=== PATIENT | female | born 1955 | race Caucasian/White ===

== ENCOUNTER → 2019-06-18 | Outpatient (CLI) | payer BC, OTHER ==
--- NOTE | 2019-06-19 11:28 | REP ---
MRI LUMBAR SPINE WITHOUT CONTRAST: 06/18/2019. Comparison: 09/27/2013. Clinical history: Back pain, spondylosis. Evaluate for stenosis. Technique: T1, T2 and STIR sagittal with axial T1 and T2 sequences. Findings: A 12 L1 through L4-5 disc levels show loss of disc signal. There is mild preservation of signal at L5-S1 but all this is unchanged. Disc heights are unchanged and maintained. Vertebral bodies show Schmorl's nodes at multiple endplates but no compression deformity of destructive lesion. Conus terminates at L1-2. T12-L1, L1-2 levels show no disc bulge or herniation and no spinal or foraminal stenosis. At L2-L3 there is a broad-based disc bulge thinning ventral subarachnoid space, ligamentum and facet hypertrophic changes are present, but the cross-sectional area of the canal appears adequate. The foramina are adequate without L2 nerve root compression. At L3-L4 there is a broad-based disc bulge with compression of the thecal sac. There is a left lateral disc protrusion but this does not compress the L3 nerve root in the foramen on that left side the right foramen is also adequate without nerve root compression. At L4-L5 there is also a broad-based disc bulge with the bulge less prominent in the central canal but extending with protrusion and extrusion into the left neural foramen and increased fashion. It abuts and displaces the left L5 nerve root in the canal and the L4 nerve root in the foramen does not show compression and has adequate perineural fat. The right L4 nerve root was also without compression. At L5-S1 there is a mild broad-based disc bulge abutting the left S1 nerve root but not displacing it in central canal cross-sectional area of the canal was ample. Foramina show adequate perineural fat. Impression: 1. Broad-based disc bulge at L4-5 abutting the left L5 nerve root in the canal. Some mild central canal stenosis. The bulge in the central canal is slightly smaller than the previous study but there is a larger protrusion and extruded component into the left foramen. That left L4 nerve root is nevertheless with out compression and has adequate perineural fat. The right foramen shows no compression of the right L4 root. 2. At L3-4 there is also broad-based disc bulge with left-sided lateral disc protrusion which does not compress the L3 nerve root in the foramen. Right foramen adequate central canal adequate. 3. L5-S1 mild broad-based disc bulge abuts left S1 nerve root without spinal or foraminal stenosis. Levels above unremarkable. Electronically Signed by Claus Ho MD 06/19/2019 08:27 P
== END ==
LOC: M RAD 11:36
PROVIDERS: ATTEND Orthopaedic Surgery
DX: M47.896 Other spondylosis, lumbar region (principal); M51.26 Other intervertebral disc displacement, lumbar region

== ENCOUNTER → 2020-11-05 | Outpatient (CLI) | payer BC, OTHER ==
--- NOTE | 2020-11-05 13:45 | REP ---
INDICATION: OTHER INTERVERTEBRAL DISC DEGENERATION LUMBOSACRAL REGION. COMPARISON: Comparison MRI study is from June 18, 2019.. TECHNIQUE: Sagittal and axial T1 and T2-weighted scans are acquired in the usual fashion with and without fat saturation. Sequences include spin echo, turbo spin-echo, and STIR imaging sequences. FINDINGS: Lumbar vertebral body heights are preserved. Alignment is normal. Cortical and medullary bone signal intensity are normal. No extra vertebral abnormality is observed. The tip of the conus medullaris is normal in position and appearance at L1. There are Schmorl's nodes on either side of the L1-2 disc and at the superior endplate of L3 at the L2-3 disc level. Schmorl's nodes are seen at T12-L1 as well. Axial and sagittal images taken at L1-2 demonstrate minimal disc bulging without thecal sac compression. At L2-3, there is mild diffuse disc bulging. Disc space narrowing and decreased T2 signal intensity is seen at L2-3. No focal disc protrusion or spinal stenosis seen. No foraminal narrowing is noted. At L3-4, there is mild bulging of the left foraminal and left lateral disc margin. No nerve root compression is seen. No spinal stenosis noted. At L4-5, there is degenerative narrowing of the disc with decreased signal intensity. There is a left foraminal and left posterolateral disc protrusion at L4-5 a moderate-sized proved. This produces compression of the 5th lumbar root. There is right foraminal disc bulging but no nerve root compression is seen. Canal size is mildly stenotic due to diffuse disc bulging and ligamentum flavum and facet hypertrophy. At L5-S1, there is mild facet hypertrophy bilaterally. No other finding. IMPRESSION: There is a left posterior disc protrusion at L4-5 along with mild central canal stenosis. Mild left lateral and left foraminal disc bulging at L3-4. <Electronically signed by Tin Sloan > 11/05/20 [id number]
== END ==
LOC: M RAD 11:01
PROVIDERS: ATTEND Orthopaedic Surgery
DX: M51.37 Other intervertebral disc degeneration, lumbosacral region (principal); M51.26 Other intervertebral disc displacement, lumbar region